=== PATIENT | female | born 1985 | race Caucasian/White ===

== ENCOUNTER 2020-05-05 15:51 | Outpatient (REF) | payer MEDICAID, SELFPAY ==
[2020-05-07 09:59] LABS: CT PCR NOT DETECTED (Not Detect.); NG PCR NOT DETECTED (Not Detect.)
[2020-06-02 05:27] LABS: HPV 16 RNA NOT DETECTED (NOT DETECTED); HPV mRNA E6/E7 Detected (Not Detected)
== END 2020-05-05 15:52 | disposition home or self-care (01) ==
LOC: CF 15:51
PROVIDERS: Visit Provider Obstetrics & Gynecology
DX: Z01.419 Encounter for gynecological examination (general) (routine) without abnormal findings (principal); N64.52 Nipple discharge; R63.5 Abnormal weight gain; F17.210 Nicotine dependence, cigarettes, uncomplicated; Z11.3 Encounter for screening for infections with a predominantly sexual mode of transmission; Z87.42 Personal history of other diseases of the female genital tract
CPT/HCPCS: 36415; 87491; 87591; 87624; 87625; 88142; 99214

== ENCOUNTER 2020-06-14 08:35 | Outpatient (REF) | payer MEDICAID, SELFPAY | END 2020-06-14 08:36 | disposition home or self-care (01) | LOC: HO.LAB 08:35 | PROVIDERS: Visit Provider Obstetrics & Gynecology | DX: B97.7 Papillomavirus as the cause of diseases classified elsewhere (principal); Z87.42 Personal history of other diseases of the female genital tract | CPT/HCPCS: 57454; 88305; 99212 ==

== ENCOUNTER → 2020-06-28 11:18 | Outpatient (BNVA) | payer MEDICAID, SELFPAY | PROVIDERS: Visit Provider Obstetrics & Gynecology | DX: Z76.89 Persons encountering health services in other specified circumstances (principal) ==

== ENCOUNTER 2020-06-30 01:27 | Emergency (ER) | payer MEDICAID, SELFPAY ==
[2020-06-30 01:46] VITALS: BP 131/54; PULSE 85; RESP 18; TEMP 37.2; O2SAT 100; BMI 37.8
[2020-06-30 01:52] VITALS: BP 131/84; PULSE 81; RESP 18; TEMP 37.2; O2SAT 100
[2020-06-30 02:52] LABS: Basophils Percent Auto 0.3 % (0-2); Eosinophils Absolute Auto 0.3 X10*3/uL (0.0-0.4); Eosinophils Percent Auto 2.1 % (0-4); Hematocrit 38.9 % (37-47); Hemoglobin 12.5 g/dl (12.0-16.0); Imm Gran Abs Auto 0.03 X10*3/uL (0.00-0.03); Imm Gran Pct Auto 0.2 % (0.0-0.4); Lymphocytes Absolute Auto 3.4 X10*3/uL (1.2-4.9); Lymphocytes Percent Auto 28.1 % (20-40); MANUAL DIFF FLAG NO; Mean Corpuscular HGB Conc 32.1 g/dl (31.0-35.0); Mean Corpuscular Hemoglobin 25.9 pg (27.0-33.0); Mean Corpuscular Volume 80.5 fL (80-98); Monocytes Absolute Auto 0.9 X10*3/uL (0.1-1.2); Monocytes Percent Auto 7.6 % (2-11); Neutrophils Absolute Auto 7.5 X10*3/uL (2.0-8.3); Neutrophils Percent Auto 61.7 % (45-73); Platelet Count 441 X10*3/uL (160-400); Red Blood Count 4.83 X10*6/uL (4.20-5.50); White Blood Count 12.2 X10*3/uL (4.8-10.8)
[2020-06-30 02:54] LABS: UPreg QC Valid YES; Urine Pregnancy NEGATIVE (NEGATIVE)
[2020-06-30 03:01] LABS: Glucose Urine UA NEG (NEG); Leukocyte Esterase Urine NEG (NEG); Nitrite Urine NEG (NEG); Urine Blood 3+ (NEG); Urine Ketones NEG (NEG); Urine Protein 1+ MG/DL (NEG-TRACE)
[2020-06-30] MEDS: Famotidine/PF 20 MG/2 ML VIAL IVPUSH (03:01)
[2020-06-30] MEDS: Lidocaine HCl Viscous 2 % 15 ML SOLUTION MUCOUS MEM (03:01)
[2020-06-30] MEDS: 0.9 % Sodium Chloride 1,000 ML 999 ML IVCONT (03:01)
[2020-06-30] MEDS: Magnesium Hydrox/Alum Hydrox 30 ML ORAL.SUSP PO (03:01)
[2020-06-30] MEDS: PHENobarb/Hyoscy/Atropine/Scop 10 ML ELIXIR PO (03:01)
[2020-06-30 03:02] LABS: Appearance Urine CLOUDY; Color Urine RED; Mucus Urine 1+ /LPF; RBC Urine TNTC /HPF (0); Squamous Epithelial Cell Urine 2+ /LPF; WBC Urine 0-2 /HPF (0-4)
[2020-06-30 03:15] LABS: Alanine Aminotransferase 17 U/L (0-31); Albumin Level 3.7 g/dL (3.5-5.0); Alkaline Phosphatase 122 U/L (39-117); Anion Gap 15 (12-20); Aspartate Amino Transferase 19 U/L (5-31); Bilirubin Direct < 0.2 mg/dL (0.0-0.5); Bilirubin Total < 0.2 mg/dL (0.0-1.0); Blood Urea Nitrogen 14 mg/dL (9-16); Calcium 9.3 mg/dL (8.4-10.2); Carbon Dioxide 23 mmol/L (22-29); Chloride 105 mmol/L (96-108); Creatinine Clr Calc Pharmacy 110.8; Estimated Glomerular Filt Rate > 60; Glucose Random 100 mg/dL (60-115); Lipase 18 U/L (8-78); Potassium 4.5 mmol/l (3.3-5.1); Sodium 138 mmol/L (135-145); Total Protein 6.8 g/dL (6.5-8.0)
--- NOTE | 2020-06-30 03:40 | ED_ITS ---
HPI - General Adult General Chief complaint: Abdominal Pain Stated complaint: Abd pain Time Seen by Provider: 06/30/20 01:56 Source: patient Mode of arrival: ambulatory History of Present Illness HPI narrative: 34-year-old female with epigastric pain for the past 1 day. Positive nausea with mild vomiting however no diarrhea. No lower abdominal pain or urinary symptoms. Patient did have episode of vomiting without blood. No fevers no chills no cough no dizziness no lightheadedness Severity: moderate Relieving factors: none Related Data Previous Rx's Medication Instructions Recorded famotidine [Pepcid] 20 mg PO BID #14 tab 06/30/20 Allergies Allergy/AdvReac Type Severity Reaction Status Date / Time acetaminophen [Percocet] Allergy Unknown hives Verified 06/28/20 11:19 oxycodone [Percocet] Allergy Unknown hives Verified 06/28/20 11:19 Review of Systems Review of Systems: Constitutional : No Weight loss, No Fever, No Chills, No Night Sweats, No Fatigue, No Malaise ENT/Mouth : No Hearing loss, No Ear Pain, No Nasal Congestion, No Sinus Pain, No Hoarseness, No sore throat, No Rhinorrhea, No Swallowing Difficulty Eyes: No Eye Pain, No Swelling, No Redness, No Foreign Body, No Discharge, No Vision Changes Cardiovascular : No Chest Pain, No SOB, No Dyspnea on Exertion, No Orthopnea, No Edema, No Palpitations Respiratory : No Cough, No Sputum, No Wheezing, No Smoke Exposure, No Dyspnea Gastrointestinal : Positive Nausea, positive Vomiting, No Diarrhea, No Constipation, positive abdominal Pain, No Hematochezia, No Melena Genitourinary : no irregular bleeding, No Dysuria, No Urinary Frequency, No Hematuria, No Urinary Incontinence, No Urgency, No Flank Pain, No Urinary Flow Changes, No Hesitancy Musculoskeletal : No joint pain, No Myalgias, No Joint Swelling Skin : No Skin Lesions, No rash Neuro : No Weakness, No Numbness, No Paresthesias, No Loss of Consciousness, No Dizziness, No Headache Psych : No Anxiety/Panic, No Depression, No SI/HI/AH/VH, No Social Issues, Heme/Lymph: No Bruising, No Bleeding,No Lymphadenopathy Endocrine : No Polyuria, No Polydipsia, No Temperature Intolerance PMFSH Past Medical History Attestation statement: The following information was validated with the patient. Surgical History History of bilateral tubal ligation Hx of appendectomy Hx of inguinal hernia surgery Family History Family History Father HTN (hypertension) Diabetes mellitus Mother HTN (hypertension) Paternal Grandfather HTN (hypertension) Diabetes mellitus Maternal Grandfather Throat cancer Social History Social History Alcohol intake: current Alcohol intake frequency: holidays/special occasions only Smoking Status: Current every day smoker Tobacco Type: Cigarette Smoked in Last 30 Days: No Use of substances other than those prescribed or required for medical reasons: No Advance Directives: No Advance Directives Information Provided: No Sexual orientation: Straight/Heterosexual Gender identity: female Physical Exam Vital Signs: Vital Signs: Last Vital Signs Temp 97.9 F 06/30/20 03:48 Pulse 65 06/30/20 03:48 Resp 18 06/30/20 03:48 BP 112/70 06/30/20 03:48 Pulse Ox 100 06/30/20 03:48 Body Mass Index 37.8 Vital signs reviewed Appearance: Alert. Oriented X3. No acute distress. Eyes: Pupils equal, round and reactive to light. ENT: Pharynx normal. Neck: Normal inspection. Neck supple. No lymph nodes noted. No crepitus CVS: Normal heart rate and rhythm. Pulses normal. Normal S1 and S2 Respiratory: No respiratory distress. Breath sounds normal. No Wheezing. No rales Abdomen: Soft and positive mid epigastric tender. No rigidity. No distention. good BS x4 Skin: Skin warm and dry. Normal skin color. Normal skin turgor. Extremities: No lower extremity edema. Neurovascular intact to all extremities. No Lacerations. No Rash Neuro: Oriented X 3. No motor deficit. No sensory deficit. Moving all extermities. No slurred speech. Course Course Course Narrative: Laboratory work reviewed. Re-examine abdomen without signs of peritonitis. Patient tolerating p.o. intake. Patient did get a GI cocktail in which improved dramatically her abdominal pain Medical Decision Making MDM Narrative Medical decision making narrative: 34-year-old epigastric pain. History of acid reflux as per patient. Improved with GI cocktail and IV Pepcid. Laboratory work within normal limits at this point I doubt patient has cholecystitis, pancreatitis or liver failure Lab Data Result diagrams: 06/30/20 02:37 06/30/20 02:37 Labs: Lab Results 06/30/20 06/30/20 06/30/20 Range/Units 02:37 02:37 02:37 WBC 12.2 H (4.8-10.8) X10*3/uL RBC 4.83 (4.20-5.50) X10*6/uL Hgb 12.5 (12.0-16.0) g/dl Hct 38.9 (37-47) % MCV 80.5 (80-98) fL MCH 25.9 L (27.0-33.0) pg MCHC 32.1 (31.0-35.0) g/dl RDW 15.0 (11.0-16.0) % Plt Count 441 H (160-400) X10*3/uL MPV 10.0 (9.4-12.3) fL Immature Gran % (Auto) 0.2 (0.0-0.4) % Neut % (Auto) 61.7 (45-73) % Lymph % (Auto) 28.1 (20-40) % White % (Auto) 7.6 (2-11) % Eos % (Auto) 2.1 (0-4) % Baso % (Auto) 0.3 (0-2) % Lymph # (Auto) 3.4 (1.2-4.9) X10*3/uL White # (Auto) 0.9 (0.1-1.2) X10*3/uL Eos # (Auto) 0.3 (0.0-0.4) X10*3/uL Baso # (Auto) 0.0 (0.0-0.2) X10*3/uL Abs Immat Gran (auto) 0.03 (0.00-0.03) X10*3/uL Absolute Neuts (auto) 7.5 (2.0-8.3) X10*3/uL Absolute Nucleated RBC 0.000 (0.0-0.012) X10*3/uL Nucleated RBC % (auto) 0.0 (0.0-0.2) /100WBC Sodium 138 (135-145) mmol/L Potassium 4.5 (3.3-5.1) mmol/l Chloride 105 (96-108) mmol/L Carbon Dioxide 23 (22-29) mmol/L Anion Gap 15 (12-20) BUN 14 (9-16) mg/dL Creatinine 0.74 (0.5-1.4) mg/dL Estim Creat Clear Calc 110.8 Estimated GFR > 60 Random Glucose 100 (60-115) mg/dL Calcium 9.3 (8.4-10.2) mg/dL Total Bilirubin < 0.2 (0.0-1.0) mg/dL Direct Bilirubin < 0.2 (0.0-0.5) mg/dL AST 19 (5-31) U/L ALT 17 (0-31) U/L Alkaline Phosphatase 122 H (39-117) U/L Total Protein 6.8 (6.5-8.0) g/dL Albumin 3.7 (3.5-5.0) g/dL Lipase 18 (8-78) U/L Urine Color RED Urine Appearance CLOUDY Urine pH 7.0 (5.0-8.0) Ur Specific [place] 1.010 (1.005-1.025) Urine Protein 1+ H (NEG-TRACE) MG/DL Urine Glucose (UA) NEG (NEG) MG/DL Urine Ketones NEG (NEG) MG/DL Urine Blood 3+ H (NEG) Urine Nitrite NEG (NEG) Ur Leukocyte Esterase NEG (NEG) Urine RBC TNTC H (0) /HPF Urine WBC 0-2 (0-4) /HPF Ur Squamous Epith Cells 2+ /LPF Urine Bacteria NONE /LPF Urine Mucus 1+ /LPF Urine Test NEGATIVE (NEGATIVE) Discharge Plan Discharge Clinical Impression: Gastritis Qualifiers: Gastritis type: unspecified gastritis Chronicity: acute Gastritis bleeding: without bleeding Qualified Code(s): K29.00 - Acute gastritis without bleeding Patient Disposition: Home, Self-Care Instructions: Gastritis (ED) Additional Instructions: Thank you for visiting the emergency department today. If your symptoms worsen or do not resolve completely please return to the emergency department immediately or call 911. If you have any questions please call your primary care physician Prescriptions: New famotidine [Pepcid] 20 mg tablet 20 mg PO BID Qty: 14 RF: 0 Referrals: [facility] [Primary Care Provider] - 2 days Interventions: ED Discharge Assessment Last Done: 06/30/20 03:49 Discharge Date/Time: 06/30/20 03:49
[2020-06-30 03:48] VITALS: BP 112/70; PULSE 65; RESP 18; TEMP 36.6; O2SAT 100
== END 2020-06-30 03:49 | disposition home or self-care (01) ==
PROVIDERS: Emergency Provider Emergency Medicine
DX: K29.00 Acute gastritis without bleeding (principal); R10.13 Epigastric pain; R11.2 Nausea with vomiting, unspecified; F17.210 Nicotine dependence, cigarettes, uncomplicated; Z71.6 Tobacco abuse counseling; Z79.899 Other long term (current) drug therapy
CPT/HCPCS: 36415; 80048; 80076; 81001; 81003; 81025; 83690; 85025; 96361; 96374; 99284

== ENCOUNTER → 2020-08-24 16:04 | Outpatient (BNVA) | payer MEDICAID, SELFPAY | PROVIDERS: PCP Nurse Practitioner Family; Visit Provider Surgery | DX: K42.9 Umbilical hernia without obstruction or gangrene (principal) | CPT/HCPCS: 99212 ==

== ENCOUNTER 2020-09-06 12:46 | Outpatient (REF) | payer MEDICAID, SELFPAY ==
--- NOTE | 2020-09-06 12:49 | CT_ITS ---
EXAMINATION: CT ABDOMEN AND PELVIS WITH CONTRAST CLINICAL INFORMATION: Umbilical hernia COMPARISON: Previous CT of the abdomen and pelvis April 2014 TECHNIQUE: Multidetector volumetric images were obtained from the superior aspect of the liver through the pubic symphysis following administration 85 mL of Omnipaque 350 intravenous contrast. Sagittal and coronal reformatted images were obtained on the technologist's workstation. Oral contrast: Yes This CT examination was performed using dose optimization techniques as appropriate, variously including the following: *Automated exposure control *Adjustment of mA and/or kV according to patient size (this includes techniques or standardized protocols for targeted exams where dose is matched to indication/reason for exam; i.e. extremities or head) *Use of iterative reconstruction technique DLP: 539 mGy-cm FINDINGS: LUNG BASES: The visualized lung bases are unremarkable. LIVER, GALLBLADDER, AND BILIARY TREE: The liver is normal in size, shape, and attenuation. No focal hepatic lesion or biliary ductal dilatation is present. The gallbladder is contracted. PANCREAS: Unremarkable. SPLEEN: Unremarkable. ADRENAL GLANDS: Unremarkable. KIDNEYS AND URETERS: The kidneys are normal in size, shape, and attenuation. No hydronephrosis, hydroureter, or calculi seen. No perinephric stranding. BLADDER: Unremarkable. GASTROINTESTINAL TRACT: The small and large bowel are unremarkable. The appendix is is not identified. ABDOMINAL WALL: There is question of previous umbilical hernia repair. Just superior to this is a fat-containing hernia measuring 3.2 x 4.2 x 3.5 cm in AP transverse and longitudinal dimension. This has a 1.2 cm neck. LYMPH NODES: Normal. VASCULAR: Unremarkable. PELVIC VISCERA: Unremarkable. OSSEOUS STRUCTURES: There is increased sclerosis of the iliac side of the sacroiliac joints, right greater than left. There is increased sclerosis of the left pubic bone at the pubic symphysis. These areas are new or increased from 2014. There is a 7 mm sclerotic lesion in the right iliac bone axial image 58 series 3 and 4 mm sclerotic lesion in the left femoral head that are stable and may represent bone islands. CT/CT abdomen pelvis w con IMPRESSION: Postsurgical changes following umbilical hernia repair. Supraumbilical hernia containing fat measuring 3.2 x 4.2 x 3.5 cm. Increasing sclerosis of the iliac bones at the sacroiliac joints, right greater than left and left pubic bone at the pubic symphysis compared to 2014 exam.
[2020-09-06] MEDS: Barium Sulfate Oral (Vanilla) 450 ML ORAL.SUSP 900 ML PO (14:57)
[2020-09-06] MEDS: iohexoL 350 MG/ML 100 ML INFUS..BTL IV (14:57)
== END 2020-09-06 12:47 | disposition home or self-care (01) ==
LOC: HO.CT 12:46
PROVIDERS: Visit Provider Surgery
DX: K42.9 Umbilical hernia without obstruction or gangrene (principal)
CPT/HCPCS: 74177; Q9967

== ENCOUNTER → 2020-09-13 09:27 | Outpatient (BNVA) | payer MEDICAID, SELFPAY | PROVIDERS: PCP Nurse Practitioner Family; Visit Provider Surgery | DX: K43.2 Incisional hernia without obstruction or gangrene (principal) | CPT/HCPCS: 99212 ==

== ENCOUNTER 2020-09-26 09:54 | Day surgery (SDC) | payer MEDICAID, SELFPAY ==
[2020-09-16 18:58] VITALS: BMI 37.0
[2020-09-26] VITALS (8 sets, daily range): BP systolic 103–143; BP diastolic 58–93; PULSE 74–87; RESP 14–20; TEMP 36.2–36.5; O2SAT 94–99
[2020-09-26] MEDS: Lactated Ringers 1,000 ML 100 ML IVCONT (10:46)
--- NOTE | 2020-09-26 10:46 | PC.NURSE ---
BP of 103/58 noted, anesthesia KARI contacted. Given verbal order for LR bolus.
--- NOTE | 2020-09-26 10:53 | P.CONAN_ITS ---
[facility] Active Problems Active Problems: All Active Problems (Updated 09/20/20 @ 11:06 by Mercy miller) History of abnormal cervical Pap smear (Acute) Recurrent umbilical hernia (Acute) Incisional hernia (Acute) Past Medical History Medical History History of anemia Hx of migraines Smoker Family History Family History Father HTN (hypertension) Diabetes mellitus Mother HTN (hypertension) Paternal Grandfather HTN (hypertension) Diabetes mellitus Maternal Grandfather Throat cancer Surgical History Surgical History (Updated 09/20/20 @ 11:06 by Mercy Mc) H/O excision of mass History of bilateral tubal ligation Hx of appendectomy Hx of inguinal hernia surgery Hx of umbilical hernia repair Social History Social History Alcohol intake: current Alcohol intake frequency: holidays/special occasions only Smoking Status: Current every day smoker Tobacco Type: Cigarette Cigarettes Per Day: 3 Smoked in Last 30 Days: Yes Use of substances other than those prescribed or required for medical reasons: No Advance Directives: No Advance Directives Information Provided: No Advance Directives on File: No Recently lost weight without trying: No Sexual orientation: Straight/Heterosexual Gender identity: female Meds Allergies Allergy/AdvReac Type Severity Reaction Status Date / Time acetaminophen [Percocet] Allergy Unknown hives Verified 09/16/20 18:58 oxycodone [Percocet] Allergy Unknown hives Verified 08/24/20 16:13 Active Medications: Current Medications Generic Name Dose Route Start Last Admin Trade Name Freq PRN Reason Stop Dose Admin Lactated Ringer's 1,000 mls @ 100 mls/hr 09/26/20 10:30 09/26/20 10:46 Lr IVCONT 100 mls/hr .Q10H PAULA Administration Home Medications Medication Instructions Recorded Confirmed Last Taken Type No Known Home Meds 09/13/20 09/20/20 Unknown History Exam Exam Date and Time: September 26, 2020 1053 Height,Weight and Vital Signs: Height 5 ft 1 in Weight 88.904 kg Last Vital Signs Temp 97.1 F 09/26/20 10:39 Pulse 75 09/26/20 10:39 Resp 16 09/26/20 10:39 BP 103/58 L 09/26/20 10:39 Pulse Ox 99 09/26/20 10:39 Airway Mallampati Class: III TM Dist: >3cm Neck ROM: Full Loose/Missing/Broken Teeth: No Heart: RRR Assessment and Plan Assessment Anesthesia Assessment: Anesthesia Plan Discussed and Chart Reviewed Final Anesthetic Review NPO: Yes ASA Class: II Final Preanesthetic Review: No Changes in Pt Med Stat, Meds/Allgs Chart Reviewed, Consent Obtained/Reviewed and Anes Risks/Benef Reviewed Patient Risk: Intermediate Procedure Risk: Low Anesthetic Plan Anesthetic Plan: GA Disposition: Standard PACU
--- NOTE | 2020-09-26 11:36 | MHC.SHP ---
Pre-Procedural Eval Section A The patient is an INPATIENT: No Changes since office visit: Yes Patient answered all questions; No Cold of Flu in the past 2 weeks, No New Medical Problems and No Changes in Medication The History & Physical has been completed within 30 days and I have reviewed it.: Yes Section B Chief Complaint: Incisional Hernia Allergies: Allergies Allergy/AdvReac Type Severity Reaction Status Date / Time acetaminophen [Percocet] Allergy Unknown hives Verified 09/16/20 18:58 oxycodone [Percocet] Allergy Unknown hives Verified 08/24/20 16:13 Plan Diagnosis/Plan: Unchanged I have reviewed the history and physical and performed a pertinent physical examination on my patient. No changes have occurred unless specified.
--- NOTE | 2020-09-26 12:47 | P.OP_ITS ---
Operative Note Operative Note Date of Service: 09/26/20 Narrative: Preoperative diagnosis: Incisional hernia Postoperative diagnosis: Same Procedure: Repair of incisional hernia Surgeon: Forest Herr MD Erp Project Manager: Maria C Regan PA-C Anesthesia: General LMA Indications for procedure: 34-year-old female presenting with a lump in the umbilicus. She has undergone previous repairs x2 and now has a new lump. CT of the abdomen and pelvis reveals a lump located above the previous repair in the midline. Findings are consistent with an incisional hernia. Operative findings: Incisional hernia found above the previous repair. Stitch granuloma noted involving the umbilical skin with a fistula formation. The suture was removed the fistula closed. Specimen: Hernia sac Estimated blood loss: 10 mL Complications: None Procedure details: Patient was brought to the OR and placed in a supine position. After administering general anesthesia the patient's abdomen was prepped with ChloraPrep and draped in a sterile fashion. A surgical time-out was called the consent confirmed. Patient received preoperative antibiotics and Venodyne boots were in place. Local anesthesia consisting of 0.5% Sensorcaine with epinephrine was infiltrated in the midline extending up above the umbilicus. A midline incision was then created measure approximately 10 cm. Incision was carried out through subcutaneous tissue down to the hernia sac. The hernia sac was located above the umbilicus. Hernia sac was then dissected down to the fascial defect. The fascial defect measured approximately 2 cm in diameter. The umbilical skin was then lifted off the fascia and a suture granuloma identified. The sutures removed in the granuloma excised. A 6.4 cm round Ventralex mesh was then obtained. This was then placed in a preperitoneal space and secured to the fascia using interrupted 1 Polysorb suture. The fascia was closed over the mesh using interrupted Polysorb sutures. Wounds were then irrigated with saline and suctioned dry. Wounds were checked for hemostasis with electrocautery. Deep subcutaneous tissue and dermis were then reapproximated using interrupted 3-0 Polysorb sutures. Skin was closed using a running subcuticular 4-0 Polysorb suture. Steri-Strips 2 x 2 gauze and Tegaderm were then applied. The patient tolerated the procedure well. Sponge, instrument, and needle counts reported as correct. Patient was transferred to PACU in stable condition.
--- NOTE | 2020-09-26 12:50 | P.BOP_ITS ---
Brief Operative Note Date of Service: 09/26/20 <MAGALIE Patricia Last Filed: 09/26/20 12:51> Pre-op diagnosis: incisional hernia <MAGALIE Patricia Last Filed: 09/26/20 12:51> Post-op diagnosis: same (suture granuloma) <MAGALIE Patricia Last Filed: 09/26/20 12:51> Procedure: repair of incisional hernia with mesh; excision of suture granuloma <MAGALIE Patricia Last Filed: 09/26/20 12:51> Implants: ventralex 6cm mesh <MAGALIE Patricia Last Filed: 09/26/20 12:51> Surgeon: DOUGLAS SOLOMON <MAGALIE Patricia Last Filed: 09/26/20 12:51> Anesthesia: GLMA <MAGALIE Patricia Last Filed: 09/26/20 12:51> Rn Palliative Care: Maria C Regan <MAGALIE Patricia Last Filed: 09/26/20 12:51> Estimated blood loss (mL): 10 <MAGALIE Patricia Last Filed: 09/26/20 12:51> Pathology: other (hernia sac) <MAGALIE Patricia Last Filed: 09/26/20 12:51> Condition: stable <MAGALIE Patricia Last Filed: 09/26/20 12:51> Disposition: PACU <MAGALIE Patricia Last Filed: 09/26/20 12:51>
== END 2020-09-26 14:20 | disposition home or self-care (01) ==
PROVIDERS: Visit Provider Surgery
PROC: (CPT 49560; principal; 2020-09-26 11:40)
DX: K43.2 Incisional hernia without obstruction or gangrene (principal); T81.89XA Other complications of procedures, not elsewhere classified, initial encounter; M60.28 Foreign body granuloma of soft tissue, not elsewhere classified, other site; Y83.8 Other surgical procedures as the cause of abnormal reaction of the patient, or of later complication, without mention of misadventure at the time of the procedure; Y92.9 Unspecified place or not applicable; Z18.89 Other specified retained foreign body fragments
CPT/HCPCS: 49560; 49568; 88302; C1781; J0690; J1170; J2250; J2405

== ENCOUNTER 2021-03-29 12:44 | Outpatient (REF) | payer MEDICAID, SELFPAY ==
[2021-03-29 13:46] LABS: COVID-19 Test Positive (Negative)
== END 2021-03-29 12:45 | disposition home or self-care (01) ==
LOC: HO.LAB 12:44
PROVIDERS: Visit Provider Internal Medicine
DX: Z20.822 Contact with and (suspected) exposure to COVID-19 (principal)
CPT/HCPCS: 36415; 87635; C9803

== ENCOUNTER 2021-05-15 17:25 | Emergency (ER) | payer MEDICAID, SELFPAY ==
[2021-05-15 17:49] VITALS: BP 115/82; PULSE 86; RESP 20; TEMP 36.4; O2SAT 100; BMI 37.2
[2021-05-15 18:15] LABS: IDNOW Serial# 08D9AD1C; Strep A Nucleic Acid Negative (Negative)
[2021-05-15 18:24] LABS: COVID-19 Test Negative (Negative)
--- NOTE | 2021-05-15 21:10 | ED_ITS ---
HPI - URI/Sore Throat General Chief Complaint: Upper Respiratory Symptoms Stated Complaint: Flu like Time Seen by Provider: 05/15/21 21:05 Source: patient Mode of arrival: ambulatory Limitations: no limitations History of Present Illness HPI Narrative: Patient presents to ED for runny nose, cough, and sore throat for about 4 days. Patient states history of seasonal allergies around this time. Patient denies any fever, chills, chest pain, shortness of breath, or abdominal pain. Patient states versus son has symptoms and now she has symptoms. Patient is vaccinated against the COVID-19 virus Related Data Previous Rx's Medication Instructions Recorded hydromorphone 2 mg tablet 2 mg PO Q6H PRN #10 tab 09/26/20 (Dilaudid) ondansetron HCl 4 mg tablet 4 mg PO Q6H PRN #10 tab 09/27/20 (Zofran) benzonatate 100 mg capsule 100 mg PO TID PRN #21 cap 05/15/21 (Tessalon Perles) loratadine 10 mg tablet (Claritin) 10 mg PO DAILY #10 tab 05/15/21 triamcinolone acetonide 55 mcg 2 spray INTRANASAL DAILY 7 Days 05/15/21 nasal spray aerosol (Nasacort) #16.9 ml Allergies Allergy/AdvReac Type Severity Reaction Status Date / Time acetaminophen [Percocet] Allergy Unknown hives Verified 05/15/21 19:33 oxycodone [Percocet] Allergy Unknown hives Verified 05/15/21 19:33 Review of Systems Review of Systems: Yes all other systems are reviewed and are negative Constitutional: Constitutional: Reports as per HPI and Reports no additional constitutional complaints Eyes: Eyes: Reports as per HPI and Reports no additional eye complaints ENT: Reports system reviewed and no additional complaints, except as documented, Reports as per HPI, Reports nasal congestion and Reports sore throat Cardiovascular: Cardiovascular: Reports as per HPI, Reports no additional cardiovascular complaints, Denies chest pain and Denies dyspnea Respiratory: Respiratory: Reports as per HPI, Reports no additional respiratory complaints, Reports cough, Denies pain with cough and Denies dyspnea Gastrointestinal: Gastrointestinal: Reports as per HPI and Reports no additional gastrointestinal complaints Genitourinary: Genitourinary: Reports no additional female genitourinary complaints and Reports as per HPI Musculoskeletal: Musculoskeletal: Reports no additional musculoskeletal complaints and Reports as per HPI Neurologic: Reports system reviewed and no additional complaints, except as documented and Reports as per HPI Psychiatric: Psychiatric: Reports no additional psychiatric complaints and Reports as per HPI [facility] Past Medical History Medical History History of anemia Hx of migraines Smoker Surgical History (Updated 09/20/20 @ 11:06 by Mercy Mc RN) H/O excision of mass History of bilateral tubal ligation Hx of appendectomy Hx of inguinal hernia surgery Hx of umbilical hernia repair Family History Family History Father HTN (hypertension) Diabetes mellitus Mother HTN (hypertension) Paternal Grandfather HTN (hypertension) Diabetes mellitus Maternal Grandfather Throat cancer Social History Social History Alcohol intake: current Alcohol intake frequency: holidays/special occasions only Cigarettes Per Day: 3 Advance Directives: No Advance Directives Information Provided: No Sexual orientation: Straight/Heterosexual Gender identity: Female Physical Exam Vital Signs: Vital Signs: Last Vital Signs Temp 97.6 F 05/15/21 17:49 Pulse 86 05/15/21 17:49 Resp 20 05/15/21 17:49 BP 115/82 05/15/21 17:49 Pulse Ox 100 05/15/21 17:49 Body Mass Index 37.2 Const: General: cooperative, healthy appearing, comfortable, no acute distress, well developed, alert and awake Orientation/consciousness: patient oriented x3 HENMT: Head: Yes normal to inspection, Yes No palpable skull fracture present, Yes normocephalic and Yes atraumatic Ears: hearing grossly normal bilaterally, external ears normal, TM's normal bilaterally, EAC's normal, mastoids normal and no periauricular adenopathy General nose exam: Normal external nose present and Normal nares present (Nasal congestion) Face and sinus: Yes normal facial exam and Yes sinuses nontender Throat: Yes posterior oropharynx normal, Yes tonsils normal and Yes uvula midline Eyes: General: appearance normal, both eyes and all related structures Neck: Neck: Yes normal visual inspection, Yes full ROM, Yes no lymphadenopathy, Yes no meningeal signs, Yes trachea midline, Yes supple and No tender Chest: Chest palpation & inspection: normal inspection of the chest and normal palpation of entire chest wall Resp: Effort & Inspection: normal respiratory effort and able to speak in complete sentences Auscultation: clear to auscultation bilaterally Cardio: Jugular venous distension: no JVD Heart sounds: S1 normal heart sound present and S2 normal heart sound present GI: Inspection: Yes normal to inspection and No abdominal wall ecchymosis Palpation (GI): Soft to palpation, not firm, nontender, no guarding and not rigid : General: No CVA tenderness and Yes no CVA tenderness Back/Spine/Pelvis: Back: no CVA tenderness, No CVA tenderness and No back tenderness Skin: General skin exam: no rashes or lesions noted and elasticity normal Neuro: General: patient oriented x3, gait normal, no meningeal signs and CN's II-XI intact bilaterally Cranial nerves: Yes CN's II-XII intact bilaterally Extrem: General: Yes normal to inspection and Yes full ROM Psych: Appearance: grossly normal, well kempt and not disheveled Course Course Course Narrative: COVID swab and strep test ordered Reevaluation(s) Reevaluation #1: COVID swab and strep test came back negative. Lungs are clear. No indication for chest x-ray. Patient will be treated with cough medication. Diagnoses more URI but since history of seasonal allergies also dischare with claritin. Time: 21:14 MDM - URI/Sore Throat MDM Narrative Medical decision making narrative: URI. Rhinitis Lab Data Labs: Lab Results 05/15/21 05/15/21 Range/Units 17:58 17:58 COVID-19 (DALIA) Negative (Negative) COVID-19 Clin Com See Note S. pyogenes GrpA KAREN Negative (Negative) Discharge Plan Discharge Clinical Impression: Upper respiratory infection, Rhinitis Patient Disposition: Home, Self-Care Instructions: Upper Respiratory Infection (ED), Allergic Rhinitis (ED) Additional Instructions: Return to the ED for swelling of lower extremities, calf pain, coughing up blood, fever, chills, severe chest pain, shortness of breath on exertion, weakness, dizziness, intractable fever, chills, or any other concerning symptoms. Please follow-up with primary care provider Prescriptions: New benzonatate [Tessalon Perles] 100 mg capsule 100 mg PO TID PRN (Reason: cough) Qty: 21 RF: 0 loratadine [Claritin] 10 mg tablet 10 mg PO DAILY Qty: 10 RF: 0 triamcinolone acetonide [Nasacort] 55 mcg aerosol,spray 2 spray intranasal DAILY 7 Days Qty: 16.9 RF: 0 No Action ondansetron HCl [Zofran] 4 mg tablet 4 mg PO Q6H PRN (Reason: nausea and vomiting) Qty: 10 RF: 0 hydromorphone [Dilaudid] 2 mg tablet 2 mg PO Q6H PRN (Reason: pain) Qty: 10 RF: 0 Stand Alone Forms: Work/School Release Interventions: ED Discharge Assessment Last Done: 05/15/21 21:41 Discharge Date/Time: 05/15/21 21:42 Print Language: Danish
== END 2021-05-15 21:42 | disposition home or self-care (01) ==
PROVIDERS: Emergency Provider Internal Medicine
DX: J06.9 Acute upper respiratory infection, unspecified (principal); J31.0 Chronic rhinitis; Z20.822 Contact with and (suspected) exposure to COVID-19
CPT/HCPCS: 36415; 87635; 87651; 99283

== ENCOUNTER 2021-11-28 08:34 | Outpatient (REF) | payer MEDICAID, SELFPAY ==
[2021-11-29 05:26] LABS: CT PCR NOT DETECTED (Not Detect.); NG PCR NOT DETECTED (Not Detect.)
[2021-11-29 10:50] LABS: BV Int Neg Control Negative (Negative); BV Int Pos Control Positive (Positive)
[2021-12-05 02:06] LABS: HPV 16 RNA NOT DETECTED (NOT DETECTED); HPV mRNA E6/E7 rflx Detected (Not Detected)
== END 2021-11-28 08:35 | disposition home or self-care (01) ==
LOC: HO.LAB 08:34
PROVIDERS: Visit Provider Advanced Practice Midwife
DX: Z01.419 Encounter for gynecological examination (general) (routine) without abnormal findings (principal); Z20.2 Contact with and (suspected) exposure to infections with a predominantly sexual mode of transmission; Z87.42 Personal history of other diseases of the female genital tract
CPT/HCPCS: 87480; 87491; 87510; 87591; 87624; 87625; 87660; 88142

== ENCOUNTER 2022-02-14 08:49 | Outpatient (REF) | payer MEDICAID, SELFPAY | END 2022-02-14 08:50 | disposition home or self-care (01) | LOC: HO.LAB 08:49 | PROVIDERS: Visit Provider Obstetrics & Gynecology | DX: B97.7 Papillomavirus as the cause of diseases classified elsewhere (principal) | CPT/HCPCS: 57454; 88305 ==

== ENCOUNTER → 2022-03-07 08:40 | Outpatient (BNVA) | payer MEDICAID, SELFPAY | PROVIDERS: Visit Provider Obstetrics & Gynecology | DX: Z09 Encounter for follow-up examination after completed treatment for conditions other than malignant neoplasm (principal); B97.7 Papillomavirus as the cause of diseases classified elsewhere | CPT/HCPCS: 99212 ==